=== PATIENT | female | born 2000 ===

== ENCOUNTER 2025-04-26 13:32 | Outpatient (CLI) | payer BC, SELFPAY ==
--- NOTE | ~2025-04-26 | US_ITS ---
EXAMINATION: US pelvic complete w TV, 04/26/2025 13:35 [facility] HISTORY: Pelvic pain Comparison: None Technique: Junior-scale and color Doppler images were obtained. Findings: Uterus: Uterus anteverted 7.6 x 2.9 x 4.1 cm. . Endometrium 4 mm. Right Ovary:Right ovary 2.5 x 1.9 x 3 cm, no adnexal mass, normal flow. Left Ovary: Left ovary 2.1 x 1.4 x 2.1 cm, no adnexal mass, normal flow. Free Fluid: None Impression: No acute abnormality. Reviewed, dictated and finalized at location P. [facility]LLER Impression: No acute abnormality.
== END 2025-04-26 13:33 | disposition home or self-care (01) ==
LOC: MICIMG 13:34
PROVIDERS: PCP Advanced Practice Midwife; Visit Provider Advanced Practice Midwife
DX: R10.20 Pelvic and perineal pain unspecified side (principal)
CPT/HCPCS: 76830; 76856